=== PATIENT | female | born 1995 | race Two or more races ===

== ENCOUNTER 2016-09-10 00:08 | Emergency (ER) | payer SELFPAY ==
[~2016-09-10] VITALS: Ht 167.6 cm; Wt 81.8 kg
[2016-09-10 03:22] VITALS: BP 107/77
== END 2016-09-10 03:27 | disposition home or self-care (01) ==
LOC: EMS 00:10
DX: S92.351A Displaced fracture of fifth metatarsal bone, right foot, initial encounter for closed fracture (principal); F12.90 Cannabis use, unspecified, uncomplicated; W45.8XXA Other foreign body or object entering through skin, initial encounter; Y93.01 Activity, walking, marching and hiking; Y92.89 Other specified places as the place of occurrence of the external cause; Y99.8 Other external cause status
CPT/HCPCS: 99284